=== PATIENT | female | born 1950 | race Caucasian/White ===

== ENCOUNTER → 2016-05-30 | Outpatient (CLI) | payer MEDICARE, OTHER ==
--- NOTE | ~2016-05-30 | MY11 ---
[facility] A Service of [facility] RADIOLOGY TEXT RESULTS PATIENT: HAM DENT LOCATION: [facility] : 50 UNIT #: [id number] AGE: [address]: Rachel Light MD SEX: F ORDER DR: [id number] [facility] [address] [place], [place] [address] [id number] O MR#: [id number] Acc #: [id number] NAME: HAM DENT : 1950 SEX: F STUDY DATE/TIME: 05/30/2016 10:41 UNIT: [facility] ROOM: STUDY DESCRIPTION: MY Mammogram Screening Dig Griffin Attending Physician: Rachel Light M.D. Referring Physician: Rachel Light M.D. Ordering Physician: Rachel Light M.D. Primary Care Physician: Rachel Ligth M.D. MEDICAL IMAGING REPORT This report is preliminary unless electronic signature is present EXAM Digital screening mammogram, 05/30/2016 HISTORY 65-year-old woman, no risk elevation. Annual screening. COMPARISON 03/25/2013 FINDINGS Digital imaging of each breast was completed utilizing screening protocol. Review includes FDA-approved CAD device. Breast parenchyma is heterogeneously dense with a small nodular parenchymal pattern bilaterally. Subareolar duct prominence is noted in each breast. There is no interval occurring mass and I see no suspicious microcalcifications. There is no architectural deformity. IMPRESSION Benign mammogram. Annual screening recommended. Patients over the age of 40 are entered into a reminder system with target due date for the next mammogram. A result letter will also be sent to the patient. BIRADS: 2 Benign Finding Dictated by... Omer Lopez M.D. THIS IS AN ELECTRONICALLY VERIFIED REPORT Omer Lopez M.D. at 05/30/2016 3:31 PM Diane [facility] A Service of [facility] RADIOLOGY TEXT RESULTS PATIENT: HAM DENT LOCATION: [facility] #: [id number] : 50 UNIT #: [id number] AGE: [address]: Rachel Light MD SEX: F ORDER DR: TD: 05/30/2016 14:34 JOB #: [id number] MEDICAL IMAGING REPORT COPY
== END | disposition home or self-care (01) ==
LOC: CWCC 10:20
DX: Z12.31 Encounter for screening mammogram for malignant neoplasm of breast (principal)
CPT/HCPCS: G0202

== ENCOUNTER 2016-07-27 15:27 | Emergency (ER) | payer MEDICARE, OTHER | END 2016-07-27 17:23 | disposition home or self-care (01) | LOC: CED 15:27 → CFTX 15:27 | DX: S93.601A Unspecified sprain of right foot, initial encounter (principal); I10 Essential (primary) hypertension; K21.9 Gastro-esophageal reflux disease without esophagitis; J45.909 Unspecified asthma, uncomplicated; E03.9 Hypothyroidism, unspecified; W01.0XXA Fall on same level from slipping, tripping and stumbling without subsequent striking against object, initial encounter; Y92.009 Unspecified place in unspecified non-institutional (private) residence as the place of occurrence of the external cause | CPT/HCPCS: 29540; 73630; 99283 ==